=== PATIENT | female | born 1995 | race Caucasian/White ===

== ENCOUNTER 2023-06-11 12:12 | Inpatient (IN) | payer OTHER ==
[2023-06-11 13:10] LABS: BASO % 0.6 % (0-2.0); EOS % 0.8 % (0-4.5); HEMATOCRIT 41.7 % (32.4-45.2); HEMOGLOBIN 14.1 GM/dL (10.7-15.3); LYMPH % 18.4 % (8-40); MCH 31.1 pg (25.7-33.7); MCHC 33.8 g/dl (32.0-36.0); MEAN CELL VOLUME 92.1 fl (80-96); MEAN PLT VOLUME 7.4 fl (7.5-11.1); MONO % 4.9 % (3.8-10.2); NEUT % 75.3 % (42.8-82.8); PLATELET COUNT 245 10^3/uL (134-434); RBC 4.53 M/mm3 (3.60-5.2); RDW 15.3 % (11.6-15.6); WHITE BLOOD COUNT 8.9 K/mm3 (4.0-10.0)
[2023-06-11 13:16] LABS: INR 0.97 (0.83-1.09); PROTHROMBIN TIME (PATIENT) 11.2 SEC (9.7-13.0)
[2023-06-11 13:19] VITALS: BMI 60.6
[2023-06-11 13:28] LABS: POTASSIUM 3.6 mmol/L (3.5-5.1)
[2023-06-11 13:30] LABS: CALCIUM 8.3 mg/dL (8.5-10.1)
[2023-06-11] MEDS: ELECTROLYTE-148 SOLN 1,000 ML IV SCH (13:30)
[2023-06-11 13:34] LABS: CREATININE 0.4 mg/dL (0.55-1.3)
[2023-06-11] MEDS: MISOPROSTOL 25 MCG TABLET (COMPOUNDED BY PHARMACY) BUC SCH ×2 (16:45→20:45)
[2023-06-12] MEDS: ELECTROLYTE-148 SOLN 1,000 ML IV SCH (00:30)
[2023-06-12] MEDS: MISOPROSTOL 25 MCG TABLET (COMPOUNDED BY PHARMACY) BUC SCH ×5 (01:00→14:45)
[2023-06-12] MEDS ORDERED: ELECTROLYTE-148 SOLN 1,000 ML IV SCH (06:57)
[2023-06-12] MEDS ORDERED: BUTORPHANOL TARTRATE 2 MG/ML VIAL ONE (08:29)
[2023-06-12] MEDS ORDERED: BUTORPHANOL TARTRATE 2 MG/ML VIAL IVPUSH PRN (08:56)
[2023-06-12] MEDS ORDERED: BUTORPHANOL TARTRATE 1 MG/ML VIAL IVPB ONE (11:30)
[2023-06-12] MEDS ORDERED: FENTANYL/BUPIVACAINE/NS/PF - PCEA - 50 ML DISP.SYRIN EP ONE ×2 (15:37→19:37)
[2023-06-12] MEDS: FENTANYL/BUPIVACAINE/NS/PF - PCEA - 50 ML DISP.SYRIN EP SCH ×2 (16:00→19:40)
[2023-06-12] MEDS ORDERED: NALOXONE HCL 0.4 MG/ML VIAL IVPUSH PRN (16:11)
[2023-06-12] MEDS ORDERED: OXYTOCIN 30 UNITS in 0.9% NS 30 UNIT/500 ML INFUS.BAG IVPB SCH (16:30)
[2023-06-12] MEDS ORDERED: OXYTOCIN 20 UNITS in 0.9% NS 20 UNIT/1,000 ML INFUS.BAG IV ONE ×2 (19:57→20:08)
[2023-06-12] MEDS ORDERED: LIDOCAINE HCL 1% PRESERVATIVE FREE - 30ML VIAL ONE ×2 (19:57→20:08)
[2023-06-12] MEDS ORDERED: BISACODYL 10 MG SUPP.RECT RC PRN (21:05)
[2023-06-12] MEDS ORDERED: IBUPROFEN 600 MG TABLET (FP) PO PRN (21:05)
[2023-06-12] MEDS ORDERED: WITCH HAZEL 50% (TUCKS) 40 PAD/JAR PAD TP PRN (21:05)
[2023-06-12] MEDS ORDERED: ACETAMINOPHEN 325 MG TABLET (FP) PO PRN (21:05)
[2023-06-12] MEDS ORDERED: BENZOCAINE 20% 57 GM BOTTLE TP PRN (21:05)
[2023-06-12] MEDS ORDERED: BENZOCAINE 28 GM HEMORRHOIDAL OINTMENT TP PRN (21:05)
[2023-06-12] MEDS ORDERED: METHYLERGONOVINE MALEATE 0.2 MG/1 ML AMP IM PRN (21:05)
[2023-06-12] MEDS ORDERED: OXYTOCIN 20 UNITS in 0.9% NS 20 UNIT/1,000 ML INFUS.BAG IV SCH (21:15)
[2023-06-12] MEDS ORDERED: SODIUM CHLORIDE 100 ML IVPB ONE (21:24)
[2023-06-12] MEDS ORDERED: AMPICILLIN SODIUM 2 GM VIAL ONE (21:24)
[2023-06-12] MEDS: AMPICILLIN - 2 GM in SODIUM CHLORIDE 100 ML IVPB SCH (21:40)
[2023-06-13] MEDS: AMPICILLIN - 2 GM in SODIUM CHLORIDE 100 ML IVPB SCH ×2 (05:56→13:55)
[2023-06-13 08:39] LABS: BASO % 0.1 % (0-2.0); EOS % 0.1 % (0-4.5); HEMATOCRIT 39.8 % (32.4-45.2); HEMOGLOBIN 13.5 GM/dL (10.7-15.3); LYMPH % 11.5 % (8-40); MCHC 33.8 g/dl (32.0-36.0); MEAN CELL VOLUME 91.7 fl (80-96); MEAN PLT VOLUME 7.8 fl (7.5-11.1); NEUT % 82.3 % (42.8-82.8); PLATELET COUNT 275 10^3/uL (134-434); RBC 4.34 M/mm3 (3.60-5.2); RDW 15.5 % (11.6-15.6); WHITE BLOOD COUNT 14.7 K/mm3 (4.0-10.0)
[2023-06-13] MEDS: FERROUS SO4 325 MG TABLET (FP) PO SCH ×3 (08:58→17:57)
[2023-06-13] MEDS: PRENATAL VITAMINS W/ FOLIC ACID TABLET (FP) PO SCH (09:54)
[2023-06-13] MEDS: FUROSEMIDE 20 MG TABLET (FP) PO SCH (21:06)
[2023-06-13] MEDS ORDERED: SENNOSIDES/DOCUSATE COMBO (SENNA PLUS) TABLET (UD) PO PRN (22:00)
[2023-06-14] MEDS: FERROUS SO4 325 MG TABLET (FP) PO SCH ×2 (08:15→11:59)
[2023-06-14 09:21] VITALS: BP 135/76; PULSE 77; RESP 16; TEMP 98.1
[2023-06-14 09:40] LABS: POC NITRAZINE POS
[2023-06-14] MEDS: PRENATAL VITAMINS W/ FOLIC ACID TABLET (FP) PO SCH (09:58)
[2023-06-14] MEDS: FUROSEMIDE 20 MG TABLET (FP) PO SCH (09:58)
== END 2023-06-14 16:11 | disposition home or self-care (01) | DRG 560 ==
LOC: JLDR 12:12 → J3W 06-13 00:31
PROVIDERS: ADMIT Obstetrics & Gynecology; ATTEND Obstetrics & Gynecology
PROC: 10E0XZZ Delivery of Products of Conception, External Approach (ICD-10-PCS; principal; 2023-06-12)
PROC: 0KQM0ZZ Repair Perineum Muscle, Open Approach (ICD-10-PCS; 2023-06-12)
DX: O48.0 Post-term pregnancy (principal); O41.03X0 Oligohydramnios, third trimester, not applicable or unspecified; O42.92 Full-term premature rupture of membranes, unspecified as to length of time between rupture and onset of labor; O12.05 Gestational edema, complicating the puerperium; O70.1 Second degree perineal laceration during delivery; Z37.0 Single live birth; Z3A.40 40 weeks gestation of pregnancy
CPT/HCPCS: 36415; 80048; 83986-QW; 85025; 85610; 85730; 86780; 86850; 86900; 86901